=== PATIENT | male | born 1990 | race Caucasian/White ===

== ENCOUNTER 2018-07-21 17:31 | Emergency (ER) | payer OTHER ==
--- NOTE | 2018-07-21 19:02 | ED ---
Upper Extremity Pain - HPI Summary HPI Summary: 27 year old male presents with left elbow injury since last night. He fell and landed on his wrist and elbow is having pain there with limited elbow extension. He has abrasion noted to left elbow. No history of previous fractures. He is right-handed. No medical conditions. - History of Current Complaint Chief Complaint: EDExtremityUpper Stated Complaint: "LEFT ARM INJURY PER PT" Time Seen by Provider: 07/21/18 17:55 - Allergies/Home Medications Allergies/Adverse Reactions: Allergies Allergy/AdvReac Type Severity Reaction Status Date / Time No Known Allergies Allergy Verified 07/21/18 17:36 PMH/Surg Hx/FS Hx/Imm Hx Endocrine/Hematology History: Denies: Hx Anticoagulant Therapy Respiratory History: Denies: Hx Asthma Infectious Disease History: No Infectious Disease History: Denies: Traveled Outside the in Last 30 Days - Family History Known Family History: Positive: Non-Contributory - Social History Alcohol Use: Occasionally Substance Use Type: Reports: None Smoking Status (MU): Never Smoked Tobacco Review of Systems Negative: Fever Negative: Chest Pain Negative: Shortness Of Breath Positive: Myalgia - left elbow and hand pain All Other Systems Reviewed And Are Negative: Yes Physical Exam Triage Information Reviewed: Yes Vital Signs On Initial Exam: Initial Vitals Temp Pulse Resp BP Pulse Ox 98.7 F 98 14 154/90 97 07/21/18 17:34 07/21/18 17:34 07/21/18 17:34 07/21/18 17:34 07/21/18 17:34 Vital Signs Reviewed: Yes Appearance: Positive: Well-Appearing Skin: Positive: Warm, Dry Head/Face: Positive: Normal Head/Face Inspection Eyes: Positive: Normal, Conjunctiva Clear ENT: Positive: Pharynx normal Respiratory/Lung Sounds: Positive: Clear to Auscultation, Breath Sounds Present Cardiovascular: Positive: Normal, RRR Musculoskeletal: Positive: Limited @ - left elbow pain, Other - abrasion to left elbow, tenderness over left elbow, tenderness snuff box left hand, capillary refill<2 secs, sensation grossly intact, swelling noted to radial aspect of left hand Neurological: Positive: Normal Psychiatric: Positive: Normal AVPU Assessment: Alert Procedures - Splinting wrist Location: left wrist Pre-Made Type: velcro Splint: thumb spica Pre-Proc Neuro Vasc Exam: normal Post-Proc Neuro Vasc Exam: normal Diagnostics - Vital Signs Vital Signs Temp Pulse Resp BP Pulse Ox 07/21/18 17:34 98.7 F 98 14 154/90 97 - Laboratory Lab Statement: Any lab studies that have been ordered have been reviewed, and results considered in the medical decision making process. - Radiology elbow, forearm Radiology Interpretation Completed By: ED Physician Summary of Radiographic Findings: no fracture wrist Radiology Interpretation Completed By: ED Physician Summary of Radiographic Findings: no fracture Course/Dx - Course Course Of Treatment: 27 year old male presents with left elbow injury since last night. He fell and landed on his wrist and elbow is having pain there with limited elbow extension. He has abrasion noted to left elbow. No history of previous fractures. He is right-handed. No medical conditions. On exam tenderness over left elbow and snuffbox tenderness. Neurovascularly intact. X- ray read by me as no fracture. with tenderness over snuff box wanted to place in splint but patient wants a removal splint due to going to a wedding. told to keep elbow in sling and move as tolerated. told follow up with ortho. told ice, elevated. patient understand and agrees with plan. - Diagnoses Differential Diagnosis/HQI/PQRI: Positive: Contusion, Fracture (Closed), Strain Provider Diagnoses: Injury of elbow, left, Left wrist fracture Discharge - Sign-Out/Discharge Documenting (check all that apply): Patient Departure Patient Received Moderate/Deep Sedation with Procedure: No - Discharge Plan Condition: Good Disposition: HOME Patient Education Materials: R.I.C.E. Treatment (ED) Referrals: No Primary Care Phys,NOPCP [Primary Care Provider] - Mina Carrasco MD [Medical Doctor] - Additional Instructions: you may have possible scaphoid fracture, keep splint on area Follow up with ortho Keep elbow in sling Use ibuprofen or Tylenol for pain every 6 hours Ice, elevate Return to ED if any new or worsening symptoms - Billing Disposition and Condition Condition: GOOD Disposition: Home
[2018-07-21 19:07] VITALS: BP 158/99
--- NOTE | 2018-07-23 07:57 | PN ---
Progress Note - Progress Note Date of Service: 07/21/18 Note: Xray over-read shows transverse displaced fx of the scaphoid bone. Called patient twice with no answer. Left message to call back As of 07/23/18 patient did not return call Letter sent 07/23/18
== END 2018-07-21 19:10 | disposition home or self-care (01) ==
LOC: ED 17:31
DX: S59.902A Unspecified injury of left elbow, initial encounter (principal); S62.002A Unspecified fracture of navicular [scaphoid] bone of left wrist, initial encounter for closed fracture; W19.XXXA Unspecified fall, initial encounter
CPT/HCPCS: 99281